=== PATIENT | female | born 1955 | race Caucasian/White ===

== ENCOUNTER 2020-05-04 07:13 | Inpatient (IN) | payer MEDICARE, OTHER ==
[2020-04-29 13:07] LABS: BASOPHILS % 0.3 % (0.0-1.0); EOSINOPHILS # (AUTO) 0.2 (0.0-0.4); EOSINOPHILS % 2.1 % (0.0-6.0); HEMATOCRIT 33.1 % (34.2-44.1); HEMOGLOBIN 10.9 g/dL (12.0-16.0); LYMPHOCYTES # (AUTO) 1.5 (1.0-3.2); LYMPHOCYTES % 15.9 % (18.0-39.1); MEAN CORPUSCULAR HEMOGLOBIN 29.6 pg (28-32); MEAN CORPUSCULAR HGB CONC 32.9 g/dL (31-35); MEAN CORPUSCULAR VOLUME 89.9 fL (81-99); MONOCYTES # (AUTO) 0.5 (0.2-0.8); MONOCYTES % 5.8 % (4.4-11.3); NEUTROPHILS % 75.7 % (38.7-80.0); PLATELET COUNT 225 x10e3/uL (140-360); RED BLOOD COUNT 3.68 x10e6/uL (3.6-5.1); RED CELL DISTRIBUTION WIDTH 12.7 % (11.7-14.4)
[2020-04-29 13:23] LABS: ANION GAP 18.3 mmol/L (8-16); CALCIUM 9.9 mg/dL (8.4-10.2); CREATININE, SERUM 1.42 mg/dL (0.57-1.11); POTASSIUM 5.3 mmol/L (3.5-5.1)
--- NOTE | 2020-04-29 13:54 | Diagnostic Imaging Report ---
EXAMINATION: CHEST 2 VIEWS INDICATION: Pre-operative COMPARISON: None FINDINGS: LINES/TUBES:None LUNGS:The lungs are well-inflated. No focal consolidation or pulmonary edema. PLEURA:No pleural effusion or pneumothorax. MEDIASTINUM:The cardiomediastinal silhouette appears normal in size and shape. BONES/SOFT TISSUES:No acute osseous injury. ABDOMEN:No free air under the diaphragm. Status post cholecystectomy. IMPRESSION: No focal pneumonia or pulmonary edema. Signed by: Graham Dickerson MD on 04/29/2020 1:50 PM
[~2020-05-04] VITALS: Ht 167.6 cm; Wt 117.0 kg
[~2020-05-04 07:13] MED LIST: GABAPENTIN300 MG PO; GEODON20 MG PO; LASIX40 MG PO; LISINOPRIL10 MG PO; VENLAFAXINE HC100 MG PO; WELLBUTRIN SR150 MG PO
[2020-05-04] MEDS ORDERED: CEFAZOLIN SOD 1 GM/NS 50ML 100 ML IV ONE (08:24)
[2020-05-04] MEDS ORDERED: LIDOCAINE HCL (LTA) 4 ML SOLN ONE (08:43)
[2020-05-04] MEDS ORDERED: BUPIVACAINE 0.25% 30ML SDV INJ ONE (09:08)
[2020-05-04] MEDS ORDERED: ONDANSETRON HCL INJ 2MG/ML 2ML 2 MG/ML VIAL IV PRN (09:15)
[2020-05-04] MEDS ORDERED: SCOPOLAMINE 1.5 MG PATCH TOP SCH (09:15)
[2020-05-04] MEDS ORDERED: PROMETHAZINE HCL (IM) 25 MG/ML VIAL IM ONE (10:51)
[2020-05-04] MEDS ORDERED: METOCLOPRAMIDE HCL 10 MG/2ML VIAL ONE (10:52)
--- OUTSIDE RECORDS SUMMARY | 2020-05-04 11:52 | XMS REPORT | Clinical Summary ---
Author Author [facility] Organization [facility] Address Unknown Phone Unavailable Care Team Providers Care Fitness Services Manager Name Role Phone Nela MartinezAkshat MCCLAIN PCP Allergies No Known Allergies Medications End Date Status Medication Sig Dispensed Refills Start Date Active ziprasidone (GEODON) 60 0 MG capsule 6 Active diazepam (VALIUM) 10 MG Take 10 mg by 0 tablet mouth every 6 (six) hours as needed for anxiety. Active buPROPion XL (WELLBUTRIN TK 1 T PO QD 1 03/13 XL) 300 MG 24 hr tablet WF 7 Active gabapentin (NEURONTIN) TK 2 TO 3 CS 2 01 300 mg capsule PO QHS WF 7 Active venlafaxine XR 0 (EFFEXOR-XR) 150 MG 24 hr 9 capsule 07/29/2020 Active furosemide (LASIX) 40 mg Take 1 tablet 90 tablet 3 tablet (40 mg total) 9 by mouth daily. Active omeprazole (PriLOSEC) 40 TAKE 1 90 capsule 1 0 MG capsule CAPSULE BY 0 MOUTH EVERY DAY Active lisinopriL (PRINIVIL) 30 TAKE 1 TABLET 90 tablet 0 mg tablet BY MOUTH 0 EVERY DAY Active promethazine (PHENERGAN) TAKE 1 TABLET 30 tablet 0 25 MG tablet BY MOUTH 0 EVERY 6 HOURS NEEDED FOR NAUSEA OR VOMITING 04/13/2021 Active Linzess 290 mcg capsule TAKE 1 30 capsule 3 CAPSULE (290 0 MCG TOTAL) BY MOUTH DAILY BEFORE BREAKFAST. 12/20/2019 Discontinued cyclobenzaprine TK 1 T PO 0 (FLEXERIL) 10 mg tablet TID PRF 7 SPASMS 07/12/2019 Discontinued naltrexone-bupropion One tab one 60 tablet 0 03/27 (CONTRAVE) 8-90 mg tablet time a day 7 extended release for one week and then bid 07/25/2019 Discontinued (Reorder) cyclobenzaprine Take 1 tablet 30 tablet 1 07/10/20 1 (FLEXERIL) 5 mg tablet (5 mg total) 8 by mouth 3 (three) times a day as needed for muscle spasms for up to 30 days. 05/30/2019 Discontinued (Reorder) promethazine (PHENERGAN) Take 1 tablet 30 tablet 0 25 MG tablet (25 mg total) 8 by mouth every 6 (six) hours as needed for nausea or vomiting. 06/28/2019 Discontinued RABEprazole (ACIPHEX) 20 TAKE 1 TABLET 90 tablet 2 mg EC tablet DAILY 8 05/12/2019 Discontinued (Reorder) omeprazole (PriLOSEC) 40 TAKE 1 30 capsule 0 0 MG capsule CAPSULE BY 9 MOUTH EVERY DAY 06/09/2019 Discontinued (Reorder) omeprazole (PriLOSEC) 40 TAKE 1 30 capsule 0 0 MG capsule CAPSULE BY 9 MOUTH EVERY DAY 05/28/2019 Discontinued amLODIPine (NORVASC) 5 mg Take 1 tablet 30 tablet 3 tablet (5 mg total) 9 by mouth daily. 06/21/2019 mupirocin (BACTROBAN into each 30 g 0 05/22 NASAL) 2 % nasal ointment nostril 2 9 (two) times a day for 30 days. spress sides of nose together and gently massage. 06/28/2019 Discontinued lisinopril Take 1 tablet 30 tablet 2 (PRINIVIL,ZESTRIL) 10 mg (10 mg total) 9 tablet by mouth daily. 07/16/2019 Discontinued (Reorder) promethazine (PHENERGAN) TAKE 1 TABLET 30 tablet 0 25 MG tablet BY MOUTH 9 EVERY 6 HOURS NEEDED FOR NAUSEA OR VOMITING 08/15/2019 Discontinued (Reorder) omeprazole (PriLOSEC) 40 TAKE 1 30 capsule 0 1 MG capsule CAPSULE BY 9 MOUTH EVERY DAY 06/28/2019 Discontinued omeprazole (PriLOSEC) 40 TAKE 1 30 capsule 0 1 MG capsule CAPSULE BY 9 MOUTH EVERY DAY 07/02/2019 Discontinued lisinopril (PRINIVIL) 30 Take 1 tablet 30 tablet 3 mg tablet (30 mg total) 9 by mouth daily. 12/26/2019 Discontinued lisinopril (PRINIVIL) 30 Take 1 tablet 90 tablet 0 mg tablet (30 mg total) 9 by mouth daily. 07/22/2019 Discontinued (Reorder) furosemide (LASIX) 20 mg Take 1 tablet 30 tablet 11 tabletIndications: Leg (20 mg total) 9 edema by mouth daily. 09/12/2019 Discontinued promethazine (PHENERGAN) TAKE 1 TABLET 30 tablet 0 25 MG tablet BY MOUTH 9 EVERY 6 HOURS NEEDED FOR NAUSEA OR VOMITING 07/30/2019 Discontinued (Dose adjustmen t) furosemide (LASIX) 20 mg Take 1 tablet 90 tablet 3 tabletIndications: Leg (20 mg total) 9 edema by mouth daily. 12/20/2019 Discontinued cyclobenzaprine TAKE 1 TABLET 30 tablet 1 07/29/20 1 (FLEXERIL) 5 mg tablet (5 MG TOTAL) 9 BY MOUTH 3 (THREE) TIMES A DAY NEEDED FOR MUSCLE SPASMS 12/20/2019 Discontinued potassium chloride Take 1 tablet 90 tablet 3 07/30 (K-DUR) 20 MEQ CR tablet (20 mEq 9 total) by mouth every other day. 09/16/2019 Discontinued omeprazole (PriLOSEC) 40 TAKE 1 30 capsule 0 1 MG capsule CAPSULE BY 9 MOUTH EVERY DAY 12/20/2019 Discontinued lisinopril (PRINIVIL) 10 TAKE 1 TABLET 90 tablet 0 mg tablet BY MOUTH 9 EVERY DAY 10/22/2019 Discontinued promethazine (PHENERGAN) TAKE 1 TABLET 30 tablet 0 25 MG tablet BY MOUTH 0 EVERY 6 HOURS NEEDED FOR NAUSEA OR VOMITING 10/08/2019 Discontinued omeprazole (PriLOSEC) 40 TAKE 1 30 capsule 0 0 MG capsule CAPSULE BY 0 MOUTH EVERY DAY 09/16/2019 Discontinued (Reorder) amoxicillin-pot Take 1 tablet 20 tablet 0 09/16/19 2 clavulanate (AUGMENTIN) by mouth 2 0 875-125 mg per tablet (two) times a day for 10 days. 09/16/2019 Discontinued (Reorder) benzonatate (TESSALON Take 1 30 capsule 1 09/04 PERLES) 100 MG capsule capsule (100 0 mg total) by mouth 3 (three) times a day as needed for cough for up to 30 days. 09/26/2019 amoxicillin-pot Take 1 tablet 20 tablet 0 09/16/19 2 clavulanate (AUGMENTIN) by mouth 2 0 875-125 mg per tablet (two) times a day for 10 days. 10/16/2019 benzonatate (TESSALON Take 1 30 capsule 1 09/04 PERLES) 100 MG capsule capsule (100 0 mg total) by mouth 3 (three) times a day as needed for cough for up to 30 days. 11/14/2019 Discontinued omeprazole (PriLOSEC) 40 TAKE 1 30 capsule 0 0 MG capsule CAPSULE BY 0 MOUTH EVERY DAY 01/15/2020 Discontinued promethazine (PHENERGAN) TAKE 1 TABLET 30 tablet 0 25 MG tablet BY MOUTH 0 EVERY 6 HOURS NEEDED FOR NAUSEA OR VOMITING 02/19/2020 Discontinued omeprazole (PriLOSEC) 40 TAKE 1 30 capsule 3 0 MG capsule CAPSULE BY 0 MOUTH EVERY DAY 12/20/2019 Discontinued linaCLOtide (LINZESS) 72 Take 1 30 capsule 3 0 mcg capsule capsule (72 0 mcg total) by mouth daily before breakfast. 04/13/2020 Discontinued linaCLOtide (Linzess) 290 Take 1 30 capsule 3 mcg capsule capsule (290 0 mcg total) by mouth daily before breakfast. 03/24/2020 Discontinued lisinopriL (PRINIVIL) 30 TAKE 1 TABLET 90 tablet 0 mg tablet BY MOUTH 0 EVERY DAY 04/10/2020 Discontinued promethazine (PHENERGAN) TAKE 1 TABLET 30 tablet 0 25 MG tablet BY MOUTH 0 EVERY 6 HOURS NEEDED FOR NAUSEA OR VOMITING Active Problems Problem Noted Date Essential hypertension 07/12/2019 Leg edema 07/12/2019 Shortness of breath 07/12/2019 Pre-operative cardiovascular examination 07/12/2019 Abnormal vaginal bleeding 12/13/2015 Abnormal weight gain 12/13/2015 Acute pharyngitis 12/13/2015 Arthropathia 12/13/2015 Back pain 12/13/2015 Abnormal blood chemistry level 12/13/2015 Rash 12/13/2015 Cardiovascular disease 12/13/2015 Dizziness and giddiness 12/13/2015 Edema 12/13/2015 Headache 12/13/2015 Iron deficiency anemia 12/13/2015 Pain in joint 12/13/2015 Low back pain 12/13/2015 Multiple-type hyperlipidemia 12/13/2015 Morbid obesity 12/13/2015 Pulmonary embolism 12/13/2015 Right upper quadrant pain 12/13/2015 Sciatica 12/13/2015 Fever 09/12/2013 Postprocedural state 09/12/2013 Abdominal pain 06/06/2013 Hemorrhage of rectum and anus 06/06/2013 Melena 06/06/2013 Noninfectious gastroenteritis 06/21/2012 Urinary tract infection 06/12/2012 Vomiting 06/12/2012 Gastroesophageal reflux disease 06/04/2012 Nausea 06/04/2012 Disorder of kidney and ureter 06/01/2012 Encounters Care Team Description Date Type Specialty Nela Martinez E., DO 04/12/2020 Refill Family Medicine Corteguera, Nela E., DO 04/09/2020 Refill Family Medicine Corteguera, Nela E., DO 03/24/2020 Refill Family Medicine Corteguera, Nela E., DO 02/19/2020 Refill Family Medicine Corteguera, Nela E., DO 01/14/2020 Refill Family Medicine Corteguera, Nela E., DO 12/26/2019 Refill Family Medicine Corteguera, Nela E., DO Insomnia, unspecified type (Primary Dx) 12/25/2019 Telemedicine Family Medicine 12/24/2019 Travel Nela Martinez., Knee instability, left (Primary Dx); Knee instability, right; Chronic idiopathic constipation; Essential hypertension 12/20/2019 Telemedicine Family Medicine 12/20/2019 Travel Heidi Sanford MA 12/09/2019 Orders Only Family Medicine Nela Martinez E., DO Chronic idiopathic constipation (Primary Dx) 11/21/2019 Telemedicine Family Medicine 11/20/2019 Travel Heidi Sanford MA 11/20/2019 Orders Only Family Medicine Nela Martinez E., DO 11/14/2019 Refill Family Medicine 11/12/2019 Travel Nela Martinez E., DO 10/22/2019 Refill Family Medicine Sharri Trejo MD Coronary artery disease involving [place] heart with angina pectoris, unspecified vessel or lesion type (HCC) (Primary Dx) 10/08/2019 Transcribe Procedural Cardiolo gy Orders Nela Martinez E., DO 10/08/2019 Refill Family Medicine Serene Durham MA resched 09/17/2019 Telephone Cardiology Nela Martinez., DO Bronchitis 09/16/2019 Hospital Radiology Encounter Nela Martinez., Bronchitis (Primary Dx); Body mass index (BMI) 40.0-44.9, adult (HCC) 09/16/2019 Office Visit Family Medicine Nela Martinez., DO 09/15/2019 Refill Family Medicine Nela Martinez., DO 09/12/2019 Refill Family Medicine Nela Martinez., DO 08/22/2019 Refill Family Medicine Nela Martinez., DO 08/15/2019 Refill Family Medicine Joan Spencer RN 07/30/2019 Orders Only Cardiology Nela Martinez., DO 07/25/2019 Refill Family Medicine Serene Durham MA Med Refill 07/22/2019 Refill Cardiology Nela Martinez., Abnormal laboratory test result (Primary Dx) 07/19/2019 Orders Only Family Medicine Nela Martinez., DO 07/19/2019 Telephone Family Medicine Nela Martinez., DO 07/16/2019 Refill Family Medicine Serene Durham MA Appointment 07/15/2019 Telephone Cardiology Nela Martinez., Sharri Angulo MD Cardiovascular disease (Primary Dx); Hyperlipidemia, unspecified hyperlipidemia type; Essential hypertension; Shortness of breath; Leg edema; Pre-operative cardiovascular examination 07/12/2019 Office Visit Cardiology Nela Martinez., DO 07/12/2019 Orders Only Family Medicine Nela Martinez., DO 07/02/2019 Refill Family Medicine Nela Martinez., Essential hypertension (Primary Dx); Shortness of breath; Chronic fatigue 06/28/2019 Office Visit Family Medicine Susan Hugo MD 06/28/2019 Refill Family Medicine Nela Martinez, DO 06/11/2019 Telephone Family Medicine Susan Hugo MD 06/09/2019 Refill Family Medicine Nela Martinez, DO 06/04/2019 Telephone Family Medicine Nela Martinez, DO 05/30/2019 Refill Family Medicine Heidi Sanford, WHITNEY 05/28/2019 Orders Only Family Medicine Heidi Sanford, WHITNEY 05/28/2019 Orders Only Family Medicine Heidi Sanford, WHITNEY 05/27/2019 Telephone Family Medicine Nela Martinez, DO Essential hypertension (Primary Dx); Body mass index (BMI) of 40.0-44.9 in adult (HCC) 05/22/2019 Office Visit Family Medicine Heidi Sanford, WHITNEY 05/22/2019 Orders Only Family Medicine Nela Martinez, DO 05/12/2019 Refill Family Medicine after 05/04/2019 Family History Relation Name Status Comments Father Mother Social History Date Tobacco Use Types Packs/Day Years Used Quit: 1996 Former Smoker Cigarettes 10 20 Smokeless Tobacco: Never Used Drinks/Week oz/Week Comments Alcohol Use Never Alcohol Habits Answer Date Recorded How often do you have a drink containing alcohol? Never 07/12/2019 How many drinks containing alcohol do you have on No t asked a typical day when you are drinking? How often do you have six or more drinks on one Not asked occasion? Sex Assigned at Date Recorded Not on file Industry Job Start Date Occupation Not on file Not on file Not on file Travel End Travel History Travel Start No recent travel history available. Last Filed Vital Signs Reading Time Taken Comments Vital Sign 130/80 12/25/2019 7:36 AM CDT Blood Pressure 87 09/16/2019 3:36 PM [employer]ORY [employer]IST Pulse 36.9 C (98.5 F) 09/16/2019 3:36 PM [employer]ATORY [employer] SPECIALIST Temperature - - Respiratory Rate 91% 09/16/2019 3:36 PM [employer]ATORY [employer] SPECIALIST Oxygen Saturation - - Inhaled Oxygen Concentration 122 kg (270 lb) 09/16/2019 3:36 PM REGULATORY LAW SPECIALIST Weight 167.6 cm (5' 6") 12/25/2019 7:36 AM CDT Height 43.58 09/16/2019 3:36 PM [employer]ULATORY LAW SPECIALIST Body Mass Index Plan of Treatment Health Maintenance Due Date Last Done Comments CERVICAL CANCER SCREENING 1976 COLONOSCOPY SCREENING 2005 SHINGLES VACCINES (#1) 2005 BREAST CANCER SCREENING 11/09/2013 11/10/2011, 04/28/2010 INFLUENZA VACCINE 06/04/2020 Procedures Comments Procedure Name Priority Date/Time Associated Diag nosis XR CHEST 2 VW Routine 09/16/2019 Bronchitis 4:39 PM [employer]ATORY [employer]IST POCT INFLUENZA A/B Routine 09/16/2019 Bronchitis 4:04 PM [employer]ATORY LAW SPECIALIST LITHOLINK CKD PROGRAM Routine 07/12/2019 (ROB HIST) 12:00 AM REGULATORY LAW SPECIALIST THYROID STIMULATING Routine 07/12/2019 HORMONE 12:00 AM REGULATORY LAW SPECIALIST LIPID PANEL Routine 07/12/2019 12:00 AM REGULATORY LAW SPECIALIST COMPREHENSIVE METABOLIC Routine 07/12/2019 PANEL 12:00 AM REGULATORY LAW SPECIALIST CBC WITH PLATELET AND Routine 07/12/2019 DIFFERENTIAL 12:00 AM REG[employer]ATORY LAW SPECIALIST ECG 12-LEAD Routine 06/28/2019 Essential hyper tension 11:00 AM CDT Shortness of breath Chronic fatigue ECG 12-LEAD Routine 05/22/2019 Essential hyper tension 10:50 AM CDT after 05/04/2019 Results * XR Chest 2 Vw (09/16/2019 4:39 PM REGULATORY LAW SPECIALIST) Specimen Narrative Performed At EXAMINATION: XR CHEST 2 VW [facility] CLINICAL HISTORY: 64 years Female J40 Bronchitis not specified as acute or chronic, Cough new onset COMPARISON: June 15 IMPRESSION: The cardiomediastinal silhouette is not enlarged The lungs are clear Age related changes in the osseous stru ctures. . [id number] Procedure Note Hm Interface, Radiology Results Incoming - 09/16/2019 4:44 PM REGULATORY LAW SPECIALIST EXAMINATION: XR CHEST 2 VW CLINICAL HISTORY: 64 years Female J40 Bronchitis not specified as acute or chronic, Cough new onset COMPARISON: June 15 IMPRESSION: The cardiomediastinal silhouette is not enlarged The lungs are clear Age related changes in the osseous structures. . [id number] Performing Organization Address City/State/Zipcode Ph one Number [facility] [address] [place] [address] * POC Influenza A/B (09/16/2019 4:04 PM REGULATORY LAW SPECIALIST) Pathologist [facility] Rapid Influenza negative A Ag Rapid Influenza negative B Ag Specimen Nasopharyngeal * [facility] CKD Program (07/12/2019 12:00 AM REGULATORY LAW SPECIALIST) Pathologist [facility] Interpretation NoteComment: Supplemental [facility] 02 report is available. Specimen Narrative Performed At Performed at: [facility] [employer] [facility] [address] [place], [place], [place] [id number] [employer] Trimmer: Lukasz Snyder MD, Phone: [phone] Performing Organization Address City/[facility] Ph one Number [facility] * CBC with platelet and differential (07/12/2019 12:00 AM REGULATORY LAW SPECIALIST) Pathologist [facility] WBC 10.5 3.4 - 10.8 x10E3/uL [facility] RBC 3.87 3.77 - 5.28 x10E6/uL [facility] HGB 12.3 11.1 - 15.9 g/dL [facility] HCT 36.3 34.0 - 46.6 % [facility] MCV 94 79 - 97 fL [facility] MCH 31.8 26.6 - 33.0 pg [facility] MCHC 33.9 31.5 - 35.7 g/dL [facility] RDW 14.6 12.3 - 15.4 % [facility] Platelet count 420 150 - 450 x10E3/uL [facility] Neutrophils 67 Not Estab. % [facility] Lymphocytes 25 Not Estab. % [facility] Monocytes 6 Not Estab. % [facility] Eosinophils 1 Not Estab. % [facility] Basophils 0 Not Estab. % [facility] Neutrophils, 7.1 (H) 1.4 - 7.0 x10E3/uL [facility] absolute Lymphocytes, 2.6 0.7 - 3.1 x10E3/uL [facility] absolute Monocytes, 0.7 0.1 - 0.9 x10E3/uL [facility] absolute Eosinophils, 0.1 0.0 - 0.4 x10E3/uL [facility] absolute Basophils, 0.0 0.0 - 0.2 x10E3/uL [facility] absolute Immature 1 Not Estab. % [facility] granulocytes Immature grans 0.1 0.0 - 0.1 x10E3/uL [facility] (abs) Specimen Narrative Performed At Performed at: [address] [place] [id number] [employer] Tr[employer]: Sergio Brannon MD, Phone: [phone] Specimen Comment: A duplicate report zelaya s been generated due to demographic updates. Performing Organization Address [facility] * Thyroid stimulating hormone (07/12/2019 12:00 AM REGULATORY LAW SPECIALIST) TSH 0.607 0.450 - 4.500 uIU/mL [facility] Specimen Narrative Performed At Performed at: [address] [place] [id number] [employer] Tr[employer]: Sergio Brannon MD, Phone: [phone] Performing Organization Address [facility] * Lipid panel (07/12/2019 12:00 AM REGULATORY LAW SPECIALIST) Cholesterol 245 (H) 100 - 199 mg/dL [facility] Triglycerides 119 0 - 149 mg/dL [facility] HDL cholesterol 72 >39 mg/dL [facility] VLDL 24 5 - 40 mg/dL [facility] cholesterol shayan LDL cholesterol 149 (H) 0 - 99 mg/dL [facility] calculated Non-HDL 173 (H) 0 - 129 mg/dL [facility] cholesterol Specimen Narrative Performed At Performed at: [address] [place] [id number] [employer] Trimmer: Sergio Brannon MD, Phone: [phone] Performing Organization Address [facility] one [facility] * Comprehensive metabolic panel (07/12/2019 12:00 AM REGULATORY LAW SPECIALIST) Glucose 106 (H) 65 - 99 mg/dL [facility] BUN 18 8 - 27 mg/dL [facility] Creatinine 1.27 (H) 0.57 - 1.00 mg/dL [facility] EGFR Non-Afr. 45 (L) >59 mL/min/1.73 [facility] Israeli EGFR 52 (L) >59 mL/min/1.73 [facility] Israeli BUN/creatinine 14 12 - 28 [facility] ratio Sodium 130 (L) 134 - 144 mmol/L [facility] Potassium 5.4 (H) 3.5 - 5.2 mmol/L [facility] Chloride 91 (L) 96 - 106 mmol/L [facility] CO2 22 20 - 29 mmol/L [facility] Calcium 9.8 8.7 - 10.3 mg/dL [facility] Protein 6.6 6.0 - 8.5 g/dL [facility] Albumin, S 4.2 3.6 - 4.8 g/dL [facility] Globulin, total 2.4 1.5 - 4.5 g/dL [facility] Albumin/globuli 1.8 1.2 - 2.2 [facility] n ratio Total bilirubin 0.3 0.0 - 1.2 mg/dL [facility] Alkaline 109 39 - 117 IU/L [facility] phosphatase AST 24 0 - 40 IU/L [facility] ALT 17 0 - 32 IU/L [facility] Specimen Narrative Performed At Performed at: [address] [place], [place] [address] [place] [address] [id number] [employer] Trimmer: Sergio Brannon MD, Phone: [phone] Performing Organization Address [facility] one Number [facility] * ECG 12 lead (06/28/2019 11:00 AM CDT) Only the most recent of 2 results within the time period is included. Ventricular 90 [facility] rate Atrial rate 90 [facility] MS interval 140 [facility] QRSD interval 78 [facility] QT interval 338 [facility] QTC interval 413 [facility] P axis 1 40 [facility] QRS axis 1 62 [facility] T wave axis 64 [facility] EKG impression Normal sinus rhythm-Normal [facility] MUSE ECG-In automated comparison with ECG of 22-MAY-2019 10:50,-No significant change was found- Specimen Narrative Performed At This result has an attachment that is n ot available. Performing Organization Address [facility] Ph one Number [facility] MUSE [address] [place] [address] after 05/04/2019 Insurance Type Payer Benefit Subscriber ID Effective Phone Address Plan / Dates Group PPO HUMANA MEDICARE HUMANA xxxxxxxxx [id number] MEDICARE resent PPO/PFFS/E RS [facility]
--- OUTSIDE RECORDS SUMMARY | 2020-05-04 11:52 | XMS REPORT | Continuity of Care Document ---
Author Author [facility] t Organization [facility] Address [address] [place] [address] Phone Unavailable Care Team Providers Care Weaving Professor Name Role Phone Celeste Martinez DO PCP DR DYLON LOPEZ Attjoses Unavailable Anitha SIDDIQUI Attphys Unavailable Celeste Martinez DO Attphys Heidi Sanford MA Attphys Unavailable Maya HOOVER, Sharri Attphys Serene Durham MA Attphys Unavailable LILY LIVE M.D. Attphys Unavailable Tj DEL CASTILLO, Iliana Franco Attphys Unavailable Oanh HOOVER, BAkshat Davis Attphys CLIFFORD RAYMUNDO M.D. Attphys Unavail ELOY Frost M.D. Attphys Unavailable SHERITA CUMMINGS M.D. Attphys Unavailable DR DYLON LOPEZ Unavailable Payers Payer Name Policy Type Policy Number Effective Date Expiration Date S hawa [employer] MEDICARE PPO/PFFS/ERS [id number] xxxxxxxxx 2018 00:00:00 [facility] Problems Condition Name Condition Details Condition Category Status Onset Date Resolution Date Last Treatment Date Treating Clinician Comments Source Essential hypertension Essential hypertension Disease Active 2019-07-12 00:00:[address] Leg edema Leg edema Disease Active 2019-07-12 00:00:00 Bhargav Lundberg Shortness of breath Shortness of breath Disease Active 2019-07-12 00:00 :00 Bhargav Lundberg Pre-operative cardiovascular examination Pre-operative cardiovascular examination Disease Active 2019-07-12 00:00:00 Bhargav Lundberg Abnormal vaginal bleeding Abnormal vaginal bleeding Disease Ac tive 2015-12-13 00:00:[address] Abnormal weight gain Abnormal weight gain Disease Active 00:00:00 Bhargav Lundberg Acute pharyngitis Acute pharyngitis Disease Active 2015-12-13 00:00:00 Bhargav Lundberg Arthropathia Arthropathia Disease Active 2015-12-13 00:00:00 Bhargav Lundberg Back pain Back pain Disease Active 2015-12-13 00:00:00 Bhargav Lundberg Abnormal blood chemistry level Abnormal blood chemistry level Disea se Active 2015-12-13 00:00:00 Bhargav Lundberg Rash Rash Disease Active 2015-12-13 00:00:00 Bhargav Lundberg Cardiovascular disease Cardiovascular disease Disease Active 2015-12-13 00:00:[address] Dizziness and giddiness Dizziness and giddiness Disease Active 2015-12-13 00:00:[address] Edema Edema Disease Active 2015-12-13 00:00:00 Bhargav Lundberg Headache Headache Disease Active 2015-12-13 00:00:00 Bhargav Lundberg Iron deficiency anemia Iron deficiency anemia Disease Active 2015-12-13 00:00:[address] Pain in joint Pain in joint Disease Active 2015-12-13 00:00:00 Bhargav Lundberg Low back pain Low back pain Disease Active 2015-12-13 00:00:00 Bhargav Lundberg Multiple-type hyperlipidemia Multiple-type hyperlipidemia Disease Active 2015-12-13 00:00:00 Bhargav Lundberg Morbid obesity Morbid obesity Disease Active 2015-12-13 00:00:00 Bhargav Lundberg Pulmonary embolism Pulmonary embolism Disease Active 2015-12-13 00:00:0 0 Bhargav Lundberg Right upper quadrant pain Right upper quadrant pain Disease Ac tive 2015-12-13 00:00:[address] Sciatica Sciatica Disease Active 2015-12-13 00:00:00 Bhargav Lundberg Fever Fever Disease Active 2013-09-12 00:00:00 Bhargav Lundberg Postprocedural state Postprocedural state Disease Active 00:00:00 Bhargav Lundberg Abdominal pain Abdominal pain Disease Active 2013-06-06 00:00:00 Bhargav Lundberg Hemorrhage of rectum and anus Hemorrhage of rectum and anus Disease Active 2013-06-06 00:00:00 Bhargav Lundberg Melena Melena Disease Active 2013-06-06 00:00:00 Bhargav Lundberg Noninfectious gastroenteritis Noninfectious gastroenteritis Disease Active 2012-06-21 00:00:00 Bhargav Lundberg Urinary tract infection Urinary tract infection Disease Active 2012-06-12 00:00:[address] Vomiting Vomiting Disease Active 2012-06-12 00:00:00 Bhargav Lundberg Gastroesophageal reflux disease Gastroesophageal reflux disease Dis ease Active 2012-06-04 00:00:00 Bhargav Lundberg Nausea Nausea Disease Active 2012-06-04 00:00:00 Bhargav Lundberg 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 Disease Active 2012-06-01 00:00:00 Bhargav Lundberg Knee pain, right Knee pain, right Problem Active [facility] Right foot pain Right foot pain Problem Active [facility] Pain due to total right knee replacement, initial enco unter Pain due to total right knee replacement, initial encounter Problem Active [facility] Depression Depression Problem Active [facility] Status post total knee replacement using cement, 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, bilateral Problem Active [facility] 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 Problem Active [facility] Other orthopedic aftercare Other orthopedic aftercare Problem Active [facility] Rupture of right quadriceps tendon, initial encounter Rupture of right quadriceps tendon, initial encounter Problem Active [facility] History of pulmonary embolism History of pulmonary embolism Problem Resolved [facility] History of revision of total replacement of right knee joint History of revision of total replacement of right knee joint Problem Active [facility] Right hip pain Right hip pain Problem Active [facility] History of arthritis History of arthritis Problem Resolved [facility] History of back pain History of back pain Problem Resolved [facility] History of biliary colic History of biliary colic Problem Resolved [facility] History of depression History of depression Problem Resolved [facility] Trochanteric bursitis of right hip Trochanteric bursitis of righ t hip Problem Active [facility] Spinal stenosis Spinal stenosis Problem Active [facility] History of sleep apnea History of sleep apnea Problem Resolved [facility] Degenerative disc disease, lumbar Degenerative disc disease, lum bar Problem Active [facility] Allergies, Adverse Reactions, Alerts Allergy Name Allergy Type Status Severity Reaction(s) Onset Date Inacti ve Date Treating Clinician Comments Source hydrocortisone DA Active OR 2018-06-15 00:00:00 [facility] cortisone DA Active [place] 2018-06-15 00:00:00 [facility] hydrocortisone DA Active OR 2015-08-05 00:00:00 [facility] cortisone DA Active MO 2015-08-05 00:00:00 [facility] Family History Family Member Diagnosis Comments Start Date Stop Date Source Mother Family history of arthritis [facility] Sibling Family history of Heart problem [facility] Social History Social Habit Start Date Stop Date Quantity Comments Source History of tobacco use Current smoker [place] [facility] History SDOH Alcohol Std Drinks [place] [facility] History SDOH Alcohol Binge [place] [facility] Sex Assigned At [facility] Cigarettes smoked current (pack per day) - Reported 00:00:00 2019-12-25 00:00:00 [place] Cigarette pack-years 2019-12-25 00:00:00 2019-12-25 00:00:00 [facility] Alcohol intake 2019-12-25 00:00:00 2019-12-25 00:00:00 Lifetime non-drinker (finding) [place] [facility] History SDOH Alcohol Frequency 2019-07-12 00:00:00 2019-07-12 00:00:0 0 1 [place] Smoking Status Start Date Stop Date Source Former smoker 2019-12-25 00:00:00 2019-12-25 00:00:00 [facility] Medications Ordered Medication Name Filled Medication Name Start Date Stop Da te Current Medication? Ordering Clinician Indication Dosage Frequency Signature (SIG) Comments Components Source Linzess 290 mcg capsule 2020-04-13 00:00:00 2021-04-13 23:59:00 Yes 290ug QD TAKE 1 CAPSULE (290 MCG TOTAL) BY MOUTH DAILY BEFORE BREAKFAST. Bhargav Lundberg promethazine (PHENERGAN) 25 MG tablet 2020-04-10 00:00:00 Y es TAKE 1 TABLET BY MOUTH EVERY 6 HOURS NEEDED FOR NAUSEA OR VOMITING Bhargav Lundberg lisinopriL (PRINIVIL) 30 mg tablet 2020-03-24 00:00:00 Yes TAKE 1 TABLET BY MOUTH EVERY DAY Bhargav corbin omeprazole (PriLOSEC) 40 MG capsule 2020-02-19 00:00:00 Yes TAKE 1 CAPSULE BY MOUTH EVERY DAY Bhargav deleon promethazine (PHENERGAN) 25 MG tablet 2020-01-15 00:00 :00 2020-04-10 00:00:00 No TAKE 1 TABLET B Y MOUTH EVERY 6 HOURS NEEDED FOR NAUSEA OR VOMITING Bhargav Lnudberg lisinopriL (PRINIVIL) 30 mg tablet 2019-12-26 00:00:00 00:00:00 No TAKE 1 TABLET BY MOUTH EVERY DAY Bhargav Lundberg linaCLOtide (Linzess) 290 mcg capsule 2019-12-09 00:00 :00 2020-04-13 00:00:00 No 290ug QD Take 1 capsule (290 mcg t otal) by mouth daily before breakfast. Bhargav Lundberg linaCLOtide (LINZESS) 72 mcg capsule 2019-11-21 00:00: 00 2019-12-20 00:00:00 No 72ug QD Take 1 capsule (72 mcg total) by mouth daily before breakfast. Bhargav Lundberg omeprazole (PriLOSEC) 40 MG capsule 2019-11-14 00:00:0 0 2020-02-19 00:00:00 No TAKE 1 CAPSULE BY MOUTH EVERY DAY Bhargav Lundberg promethazine (PHENERGAN) 25 MG tablet 2019-10-22 00:00 :00 2020-01-15 00:00:00 No TAKE 1 TABLET B Y MOUTH EVERY 6 HOURS NEEDED FOR NAUSEA OR VOMITING Bhargav Lundberg omeprazole (PriLOSEC) 40 MG capsule 2019-10-08 00:00:0 0 2019-11-14 00:00:00 No TAKE 1 CAPSULE BY MOUTH EVERY DAY Bhargav Lundberg diazepam (VALIUM) 10 MG tablet 2019-09-16 15:36:44 Yes 10mg Q6H Take 10 mg by mouth every 6 (six) hours as needed for anxiety. Bhargav Lundberg benzonatate (TESSALON PERLES) 100 MG capsule 00:00:00 2019-10-16 23:59:00 No 100mg Q.[id number] ke 1 capsule (100 mg total) by mouth 3 (three) times a day as needed for cough for up to 30 days. Bhargav Lundberg omeprazole (PriLOSEC) 40 MG capsule 2019-09-16 00:00:0 0 2019-10-08 00:00:00 No TAKE 1 CAPSULE BY MOUTH EVERY DAY Bhargav Lundberg amoxicillin-pot clavulanate (AUGMENTIN) 875-125 mg per table t 2019-09-16 00:00:00 2019-09-26 23:59:00 No 1{tbl} Q.5D Take 1 tablet by mouth 2 (two) times a day for [address] amoxicillin-pot clavulanate (AUGMENTIN) 875-125 mg per table t 2019-09-16 00:00:00 2019-09-16 00:00:00 No 1{tbl} Q.5D Take 1 tablet by mouth 2 (two) times a day for [address] benzonatate (TESSALON PERLES) 100 MG capsule 00:00:00 2019-09-16 00:00:00 No 100mg Q.[id number] Ta ke 1 capsule (100 mg total) by mouth 3 (three) times a day as needed for cough for up to 30 days. Bhargav Lundberg promethazine (PHENERGAN) 25 MG tablet 2019-09-12 00:00 :00 2019-10-22 00:00:00 No TAKE 1 TABLET B Y MOUTH EVERY 6 HOURS NEEDED FOR NAUSEA OR VOMITING Bhargav Lundberg lisinopril (PRINIVIL) 10 mg tablet 2019-08-22 00:00:00 00:00:00 No TAKE 1 TABLET BY MOUTH EVERY DAY Bhargav Lundberg omeprazole (PriLOSEC) 40 MG capsule 2019-08-15 00:00:0 0 2019-09-16 00:00:00 No TAKE 1 CAPSULE BY MOUTH EVERY DAY Bhargav Lundberg furosemide (LASIX) 40 mg tablet 2019-07-30 00:00:00 23:59:00 No 40mg QD Take 1 tablet (40 mg total) by mouth daily. Bhargav Lundberg potassium chloride (K-DUR) 20 MEQ CR tablet 2018 00:00:2019-12-20 00:00:00 No 20meq Q2D Take 1 tablet (20 mEq total) by mouth every other day. Bhargav Lundberg cyclobenzaprine (FLEXERIL) 5 mg tablet 2019-07-06 5 00:00:00 2019-12-20 00:00:00 No TAKE 1 TABLET (5 MG TOTAL) BY MOUTH 3 (THREE) TIMES A DAY NEEDED FOR MUSCLE SPASMS Bhargav Lundberg furosemide (LASIX) 20 mg tablet 2019-07-22 00:00:00 00:00:00 No Leg edema 20mg QD Take 1 tablet (20 mg total) by mouth daily. Bhargav Lundberg promethazine (PHENERGAN) 25 MG tablet 2019-07-16 00:00 :00 2019-09-12 00:00:00 No TAKE 1 TABLET B Y MOUTH EVERY 6 HOURS NEEDED FOR NAUSEA OR VOMITING Bhargav Lundberg furosemide (LASIX) 20 mg tablet 2019-07-12 00:00:00 00:00:00 No Leg edema 20mg QD Take 1 tablet (20 mg total) by mouth daily. Bharagv Lundberg lisinopril (PRINIVIL) 30 mg tablet 2019-07-02 00:00:00 202 00:00:00 No 30mg QD Take 1 tablet (30 mg total) by mouth gaby Lundberg lisinopril (PRINIVIL) 30 mg tablet 2019-06-28 00:00:00 201 05-14-29 00:00:00 No 30mg QD Take 1 tablet (30 mg total) by mouth gaby Lundberg omeprazole (PriLOSEC) 40 MG capsule 2019-06-28 00:00:0 0 2019-06-28 00:00:00 No TAKE 1 CAPSULE BY MOUTH EVERY DAY Bhargav Lundberg omeprazole (PriLOSEC) 40 MG capsule 2019-06-10 00:00:0 0 2019-08-15 00:00:00 No TAKE 1 CAPSULE BY MOUTH EVERY DAY Bhargav Lundberg promethazine (PHENERGAN) 25 MG tablet 2019-05-30 00:00 :00 2019-07-16 00:00:00 No TAKE 1 TABLET B Y MOUTH EVERY 6 HOURS NEEDED FOR NAUSEA OR VOMITING Bhargav Lundberg lisinopril (PRINIVIL,ZESTRIL) 10 mg tablet 05-28 00:00:00 2019-06-28 00:00:00 No 10mg QD Take 1 tablet (10 mg total) by mouth daily. Bhargav Lundberg mupirocin (BACTROBAN NASAL) 2 % nasal ointment 2 00:00:00 2019-06-21 23:59:00 No Q.5D into each nost ril 2 (two) times a day for 30 days. spress sides of nose together and gently massage. Bhargav Lundberg amLODIPine (NORVASC) 5 mg tablet 2019-05-22 00:00:00 2019-05 00:00:00 No 5mg QD Take 1 tablet (5 mg total) by mouth daily. Bhargav Lundberg omeprazole (PriLOSEC) 40 MG capsule 2019-05-13 00:00:0 0 2019-06-09 00:00:00 No TAKE 1 CAPSULE BY MOUTH EVERY DAY Bhargav Lundberg venlafaxine XR (EFFEXOR-XR) 150 MG 24 hr capsule 2019-04-15 00:00:00 Yes Bhargav corbin omeprazole (PriLOSEC) 40 MG capsule 2019-04-09 00:00:0 0 2019-05-12 00:00:00 No TAKE 1 CAPSULE BY MOUTH EVERY DAY Bhargav Lundberg MethylPREDNISolone Acetate 40 MG/ML Injection Suspensi on MethylPREDNISolone Acetate 40 MG/ML Injection Suspension 2019-01-09 00:00:00 No CLIFFORD DELEON M.D. USE DIRECTED. [facility] RABEprazole (ACIPHEX) 20 mg EC tablet 2018-08-31 00:00 :00 2019-06-28 00:00:00 No TAKE 1 TABLET DAILY Hous rhiannon Lundberg promethazine (PHENERGAN) 25 MG tablet 2018 00:00 :00 2019-05-30 00:00:00 No 25mg Q6H Take 1 tablet ( 25 mg total) by mouth every 6 (six) hours as needed for nausea or vomiting. Bhargav Welsh ethjessica cyclobenzaprine (FLEXERIL) 5 mg tablet 6 00:00:00 2019-07-25 00:00:00 No 5mg Q.[id number] Ta ke 1 tablet (5 mg total) by mouth 3 (three) times a day as needed for muscle spasms for up to 30 days. [facility] naltrexone-bupropion (CONTRAVE) 8-90 mg tablet extended rele ase 2017-03-27 00:00:00 2019-07-12 00:00:00 No One tab one time a day for one week and then bid [facility] gabapentin (NEURONTIN) 300 mg capsule 2017-03-20 00:00:00 Y es TK 2 TO 3 CS PO QHS WF [facility] buPROPion XL (WELLBUTRIN XL) 300 MG 24 hr tablet 2017-03-13 00:00:00 Yes TK 1 T PO QD WF Bhargav Welsh ethodist cyclobenzaprine (FLEXERIL) 10 mg tablet 00:00:00 2019-12-20 00:00:00 No TK 1 T PO TID PRF SPASMS [facility] ziprasidone (GEODON) 60 MG capsule 2015-12-15 00:00:00 Yes [facility] Gabapentin TABS Gabapentin TABS Yes [facility] Ziprasidone HCl - 20 MG Oral Capsule Ziprasidone HCl - 20 MG Oral C apsule Yes [facility] Aciphex TBEC Aciphex TBEC Yes [facility] busPIRone HCl - 10 MG Oral Tablet busPIRone HCl - 10 MG Oral Tablet Yes [facility] Wellbutrin 100 MG TABS Wellbutrin 100 MG TABS Yes [facility] Effexor TABS Effexor TABS Yes [facility] diazePAM TABS diazePAM TABS Yes [facility] Effexor XR 37.5 MG Oral Capsule Extended Release 24 Ho ur Effexor XR 37.5 MG Oral Capsule Extended Release 24 Hour Yes [facility] Wellbutrin SR 150 MG Oral Tablet Extended Release 12 H our Wellbutrin SR 150 MG Oral Tablet Extended Release 12 Hour Yes [facility] Gabapentin 300 MG TABS Gabapentin 300 MG TABS Yes [facility] diazePAM 10 MG Oral Tablet diazePAM 10 MG Oral Tablet Yes [facility] Lasix TABS Lasix TABS Yes [facility] Lisinopril TABS Lisinopril TABS Yes [facility] Omeprazole TBDD Omeprazole TBDD Yes [facility] Geodon 40 MG Oral Capsule Geodon 40 MG Oral Capsule Yes [facility] Vital Signs Vital Name Observation Time Observation Value Comments Source Systolic blood pressure 2019-12-25 07:36:00 130 mm[Hg] Bhargav Lundberg Diastolic blood pressure 2019-12-25 07:36:00 80 mm[Hg] Bhargav Lundberg Body height 2019-12-25 07:36:00 167.6 cm Bhargav Lundberg Heart rate 2019-09-16 15:36:00 87 /min Bhargav Lnudberg Body temperature 2019-09-16 15:36:00 36.94 Ila [place] [facility] Body weight 2019-09-16 15:36:00 122.471 kg Bhargav Lundberg BMI 2019-09-16 15:36:00 43.58 kg/m2 Bhargav Lundberg Oxygen saturation in Arterial blood by Pulse oximetry 09-16 15:36:00 91 /min Bhargav Lundberg Height 2019-08-07 10:46:00 66 [in_us] [facility] Weight 2019-08-07 10:46:00 272 [lb_av] [facility] Body Mass Index Calculated 2019-08-07 10:46:00 43.9 kg/m2 [facility] Height 2019-01-09 12:30:00 66 [in_us] [facility] Weight 2019-01-09 12:30:00 250 [lb_av] [facility] Body Mass Index Calculated 2019-01-09 12:30:00 40.35 kg/m2 [facility] BP Systolic 2018-01-30 11:18:00 131 mm[Hg] [facility] BP Diastolic 2018-01-30 11:18:00 69 mm[Hg] [facility] Height 2018-01-30 11:18:00 65 [in_us] [facility] Weight 2018-01-30 11:18:00 250 [lb_av] [facility] Body Mass Index Calculated 2018-01-30 11:18:00 41.6 kg/m2 [facility] Heart Rate 2018-01-30 11:18:00 81 /min [facility] Procedures Procedure Date / Time Performed Performing Clinician Sourc e XR CHEST 2 VW 2019-09-16 16:39:34 Nela Martinez ethodist POCT INFLUENZA A/B 2019-09-16 16:04:00 Nela Martinez [facility] CBC WITH PLATELET AND DIFFERENTIAL 2019-07-12 00:00:00 Nela Gan COMPREHENSIVE METABOLIC PANEL 2019-07-12 00:00:00 Ninoska Martinez LIPID PANEL 2019-07-12 00:00:00 Nela Martinez ethodist THYROID STIMULATING HORMONE 2019-07-12 00:00:00 Nela Martinez LITHOLINK CKD PROGRAM (ROB HIST) 2019-07-12 00:00:00 Nela Allen ra ECG 12-LEAD 2019-06-28 11:00:36 Nela Martinez ethodist ECG 12-LEAD 2019-05-22 10:50:53 Nela Martinez ethodist MRI Spine lumbar wo contrast [id number] 2019-01-23 00:00:00 [facility] [U] XRAY KNEE 3 VWS RIGHT [id number] 2018-01-12 00:00:00 [facility] [U] XRAY FOOT 2 VWS RIGHT [id number] 2018-01-12 00:00:00 [facility] [[facility]] CBC (INCLUDES DIFF/PLT) 2018-01-12 00:00:00 [facility] [[facility]] SED RATE BY MODIFIED KOKOREN 2018-01-12 00:00:00 [facility] [[facility]] C-REACTIVE PROTEIN 2018-01-12 00:00[facility]00 [facility] D-DIMER, QUANTITATIVE 2018-01-12 00:00:00 [facility] MR Knee wo contrast [id number] 2018-01-12 00:00[facility] History of Hand surgery [facility] History of Lumbar vertebral fusion [facility] Plan of Care Planned Activity Planned Date Details Comments Source Future Scheduled Test 2020-06-04 00:00:00 INFLUENZA VACCINE [code = INFLUENZA VACCINE] [facility] Future Scheduled Test 2013-11-09 00:00:00 BREAST CANCER SCRE ENING [code = BREAST CANCER SCREENING] [facility] Future Scheduled Test 2005 00:00:00 COLONOSCOPY SCREEN ING [code = COLONOSCOPY SCREENING] [place] [facility] Future Scheduled Test 2005 00:00:00 SHINGLES VACCINES (#1) [code = SHINGLES VACCINES (#1)] [place] [facility] Future Scheduled Test 1976 00:00:00 Screening for kaleigh gnant neoplasm of cervix (procedure) [code = 140835393] [place] [facility] Encounters Start Date/Time End Date/Time Encounter Type Ad[facility] Encounter ID Source 2017-04-28 11:00:00 Inpatient DYLON CASTILLO [facility] [place] [place] AUNDREA [facility] [id number] [facility] 2019-12-25 00:00:00 2019-12-25 00:00:00 Outpatient AMELIA, Adrianne NA [facility] [id number] [facility] 2019-12-20 00:00:00 2019-12-20 00:00:00 Outpatient CORTASIAUERA, A NA [facility] [id number] [place] [facility] 2019-11-21 00:00:00 2019-11-21 00:00:00 Outpatient CORTASIAUERA, A NA [facility] [id number] [place] [facility] 2019-09-16 00:00:00 2019-09-16 00:00:00 Outpatient CORTASIAUERAdrianne, A NA [facility] [id number] [facility] 2019-08-07 10:00:00 2019-08-07 10:00:00 Appointment; LILY LIVE M.D. WASSERMAN, MATTHEW, M.D. [facility] Orthopedics [facility] [id number] [facility] 2019-06-05 23:42:00 2019-06-05 23:42:00 Emergency E [facility] [id number] [facility] 2019-01-23 12:45:00 2019-01-23 12:45:00 Appointment; CLIFFORD LESTER M.D. RODRIGUEZ-QUINTANA, DAVID, M.D. [facility] [id number] [facility] 2019-01-09 11:30:00 2019-01-09 11:30:00 Appointment; CLIFFORD LESTER M.D. RODRIGUEZ-QUINTANA, DAVID, M.D. [facility] [id number] [facility] 2018-07-13 10:15:00 2018-07-13 10:15:00 Appointment; CLIFFORD LESTER M.D. RODRIGUEZ-QUINTANA, DAVID, M.D. [facility] [id number] [facility] 2018-07-04 11:45:00 2018-07-04 11:45:00 Appointment; CLIFFORD LESTER M.D. RODRIGUEZ-QUINTANA, DAVID, M.D. [facility] [id number] [facility] 2018-06-29 09:45:00 2018-06-29 09:45:00 Appointment; CLIFFORD LESTER M.D. RODRIGUEZ-QUINTANA, DAVID, M.D. [facility] [id number] [facility] 2018-05-09 15:15:00 2018-05-09 15:15:00 Appointment; CLIFFORD LESTER M.D. RODRIGUEZ-QUINTANA, DAVID, M.D. [facility] [id number] [facility] 2018-05-04 10:00:00 2018-05-04 10:00:00 Appointment; CLIFFORD LESTER M.D. RODRIGUEZ-QUINTANA, DAVID, M.D. [facility] [id number] [facility] 2018-02-06 14:30:00 2018-02-06 14:30:00 Appointment; CLIFFORD LESTER M.D. RODRIGUEZ-QUINTANA, DAVID, M.D. [facility] Orthopedics [id number] [facility] 2018-01-26 13:30:00 2018-01-26 13:30:00 Appointment; ELOY MORALES M .D. BLUM, HENRY, M.D. [facility] Ortho and Spine [facility] [id number] [facility] [facility] 2018-01-12 14:15:00 2018-01-12 14:15:00 Appointment; ELOY MORALES M .D. BLUM, HENRY, M.D. [facility] Ortho and Spine Critical access hospitaler [phone] [phone] [facility] 2017-09-29 15:00:00 2017-09-29 15:00:00 Appointment; SHERITA CUMMINGS M.D. PARSLEY, BRIAN, M.D. [facility] UTP [id number] [facility] 2017-03-24 09:30:00 2017-03-24 09:30:00 Appointment; SHERITA CUMMINGS M.D. PARSLEY, BRIAN, M.D. [facility] UTP [phone] [facility] Results Test Description Test Time Test Comments Results Result Comments Source CHEST 2 VIEWS 2020-04-29 13:50:00 [place] [address] Patient Name: KATHERINE RICE MR #: [id number] : 1955 Age/Sex: 64/F Req #: [id number] Adm Physician: Ordered by: LAKISHA SIDDIQUI MD Report #: [id number] Location: OR Room/Bed: Procedure: [id number] DX/CHEST 2 VIEWS Exam Date: 04/29/20 Exam Time: 1330 REPORT STATUS: Signed EXAMINATION: CHEST 2 VIEWS INDICATION: Pre-operative COMPARISON: None FINDINGS: LINES/TUBES:None LUNGS:The lungs are well-inflated. No focal consolidation or pulmonary edema. PLEURA:No pleural effusion or pneumothorax. MEDIASTINUM:The cardiomediastinal silhouette appears normal in size and shape. BONES/SOFT TISSUES:No acute osseous injury. ABDOMEN:No free air under the diaphragm. Status post cholecystectomy. IMPRESSION: No focal pneumonia or pulmonary edema. Signed by: Jose Carbone MD on 04/29/2020 1:50 PM Dictated By: JOSE CARBONE MD 135 Transcribed By: RICO on 04/29/201349 COPY TO: LAKISHA SIDDIQUI MD XR Chest 2 Vw 2019-09-16 16:41:24 Hm Interface , Radiology Results 09/16/2019 4:44 PM CSTEXAMINATION: XR CHEST 2 VWCLINICAL HISTORY: 64 years Female J40 Bronchitis not specified as acute or chronic, Cough new onsetCOMP ARISON: June 15IMPRESSION:The cardiomediastinal silhouette is not enlarged The lungs are clear Age related changes in the osseous structures.. [id number] [facility] Influenza A/B 2019-09-16 16:04:00 Test Item Rapid Influenza A Ag (test code = 96082-2) negative Rapid Influenza B Ag (test code = 67882-0) negative Lab Interpretation (test code = 37440-7) Normal [facility] [id number] 16:09:00* Test Item Value Reference Range Interpretation Comments Glucose (test code = 2345-7) 106 mg/dL 65-99 H BUN (test code = 3094-0) 18 mg/dL 8-27 Creatinine (test code = 2160-0) 1.27 mg/dL 0.57-1 H EGFR Non-Afr. Tajik (test code = 2775) 45 mL/min/1.73 >59 L EGFR (test code = 2774) 52 mL/min/1.73 >59 L BUN/creatinine ratio (test code = 3097-3) 14 12-28 Sodium (test code = 2951-2) 130 mmol/L 134-144 L Potassium (test code = 2823-3) 5.4 mmol/L 3.5-5.2 H Chloride (test code = 2075-0) 91 mmol/L 96-106 L CO2 (test code = 8-9) 22 mmol/L 20-29 Calcium (test code = 18226-4) 9.8 mg/dL 8.7-10.3 Protein (test code = 2885-2) 6.6 g/dL 6-8.5 Albumin, S (test code = 1751-7) 4.2 g/dL 3.6-4.8 Globulin, total (test code = 91556-5) 2.4 g/dL 1.5-4.5 Albumin/globulin ratio (test code = 1759-0) 1.8 1.2-2.2 Total bilirubin (test code = 1975-2) 0.3 mg/dL 0-1.2 Alkaline phosphatase (test code = 6768-6) 109 39- 117 IU/L AST (test code = 1920-8) 24 0- 40 IU/L ALT (test code = 1742-6) 17 0- 32 IU/L RUDOLPH (test code = RUDOLPH) Performed at: [address] [place] [address] [id number] Director: Sergio Brannon MD, Phone: [phone] Lab Interpretation (test code = 37289-9) Abnormal [facility] [id number] 16:09:00* Test Item Value Reference Range Interpretation Comments Cholesterol (test code = 2093-3) 245 mg/dL 100-199 H Triglycerides (test code = 2571-8) 119 mg/dL 0-149 HDL cholesterol (test code = 2085-9) 72 mg/dL >39 VLDL cholesterol shayan (test code = 91086-3) 24 mg/dL 5-40 LDL cholesterol calculated (test code = 82379-0) 149 mg/dL 0-99 H Non-HDL cholesterol (test code = 66109-8) 173 mg/dL 0-129 H RUDOLPH (test code = RUDOLPH) Performed at: [address] [place] [address] [id number] Director: Sergio Brannon MD, Phone: [phone] Lab Interpretation (test code = 97410-1) Abnormal [facility] stimulating [id number] 16:09:00* Test Item Value Reference Range Interpretation Comments TSH (test code = 82607-3) 0.607 0.450- 4.500 uIU/mL RUDOLPH (test code = RUDOLPH) Performed at: [address] [place] [address] [id number] Director: Sergio Brannon MD, Phone: [phone] [facility] with platelet and [id number] 16:09:00* Test Item Value Reference Range Interpretation Comments WBC (test code = 6690-2) 10.5 3.4- 10.8 x10E3/uL RBC (test code = 789-8) 3.87 3.77- 5.28 x10E6/uL HGB (test code = 718-7) 12.3 g/dL 11.1-15.9 HCT (test code = 4544-3) 36.3 % 34-46.6 MCV (test code = 787-2) 94 fL 79-97 MCH (test code = 785-6) 31.8 pg 26.6-33 MCHC (test code = 786-4) 33.9 g/dL 31.5-35.7 RDW (test code = 788-0) 14.6 % 12.3-15.4 Platelet count (test code = 777-3) 420 150- 450 x10E3/uL Neutrophils (test code = 770-8) 67 % Not Estab. Lymphocytes (test code = 736-9) 25 % Not Estab. Monocytes (test code = 5905-5) 6 % Not Estab. Eosinophils (test code = 713-8) 1 % Not Estab. Basophils (test code = 706-2) 0 % Not Estab. Neutrophils, absolute (test code = 751-8) 7.1 1.4- 7.0 x10 E3/uL H Lymphocytes, absolute (test code = 731-0) 2.6 0.7- 3.1 x10 E3/uL Monocytes, absolute (test code = 742-7) 0.7 0.1- 0.9 x10E3 /uL Eosinophils, absolute (test code = 711-2) 0.1 0.0- 0.4 x10 E3/uL Basophils, absolute (test code = 704-7) 0.0 0.0- 0.2 x10E3 /uL Immature granulocytes (test code = 23973-5) 1 % Not Estab. Immature grans (abs) (test code = 24755-7) 0.1 0.0- 0.1 x1 0E3/uL RUDOLPH (test code = RUDOLPH) Performed at: [facility] [id number] Director: Sergio Brannon MD, Phone: [phone] Comment: A duplicate report has been generated due to demographic updates. Lab Interpretation (test code = 41421-3) Abnormal [facility] CKD [id number] 16:09:00* Test Item Value Reference Range Interpretation Comments Interpretation (test code = 6257311) Note Supplemental report is available. RUDOLPH (test code = RUDOLPH) Performed at: [facility] [employer] [address], [place], [place] [id number] Director: Lukasz Snyder MD, Phone: [phone] [facility] 12 [id number] 11:05:04* Test Item Value Reference Range Interpretation Comments Ventricular rate (test code = 253) 90 Atrial rate (test code = 255) 90 NJ interval (test code = 266) 140 QRSD interval (test code = 260) 78 QT interval (test code = 264) 338 QTC interval (test code = 265) 413 P axis 1 (test code = 267) 40 QRS axis 1 (test code = 268) 62 T wave axis (test code = 270) 64 EKG impression (test code = 273) Normal sinus rhythm-N ormal ECG-In automated comparison with ECG of 22-MAY-2019 10:50,-No significant change was found- [facility] Spine lumbar wo contrast [id number] 14:55:00Study: Spine lumbar wo contrast MRIClinical Indication: - M54.5, Low back pa inComparison: NoneTECHNIQUE: Multiplanar, multisequence magnetic resonance imagi ng of the lumbarspine was performed without the administration of intravenous g adoliniumcontrast.FINDINGS:5 nonrib-bearing lumbar vertebra are present. No acut e compression fracture orsubluxation is seen. Postoperative changes of posterior instrumentation forfusion with transpedicular fixation screws and Kim ro ds at L4-L5 areseen. Changes of discectomy and interbody spacer placement at L4- L5 are noted.No pars interarticularis defects are seen. Disc desiccation withmod erate-severe disc height loss at L1-L2 is seen. Disc desiccation with severedisc height loss at L5-S1 is also noted. The remaining discs are normal insignal int ensity and height. The conus terminates at L1-L2. Paravertebral softtissues are unremarkable.Findings by level:L1-L2: Moderate-sized annular disc bulge is seen. Mild facet arthrosis andligamentum flavum hypertrophy is noted. There is no spi nal canal stenosis orneural foraminal narrowing.L2-L3: The disc is normal. Mild facet arthrosis and ligamentum flavumhypertrophy is seen. There is no spinal can al stenosis or neural foraminalnarrowing.L3-L4: Small annular disc bulge is pres ent. Moderate facet arthrosis andligamentum flavum hypertrophy is seen. There is mild spinal canal stenosis withmild bilateral neural foraminal narrowing.L4-L5: Postoperative changes of fusion across the disc space are seen. Changesof dorsal decompressive laminectomy are noted. No spinal canal stenosis orneural foraminal narrowing is noted.L5-S1: Moderate-sized circumferential disc osteophyte complex is seen. Moderatefacet arthrosis is noted. There is no spinal canal stenosis. Mild left neuralforaminal narrowing is present.There is no nerve root clumping to suggest arachnoiditis.IMPRESSION:1. Postoperative changes of fusion and lami nectomy at L4-L5.2. Degenerative changes of the remaining lumbar spine with mild spinal canalstenosis and mild bilateral neural foraminal narrowing at L3-L4.SL: [id number]--Ofgj by: Juan M Hernandezictated Date/time: 02/14/19 16: 07Electronically Signed by: Juan M Hernandez MD 6:11FINAL REPORTUnHe[facility]2018-12-31 09:35:00 RUN DATE: 09/03/18 [facility] - Lab PAGE 1 RUN TIME: 934 Specimen Inqui ry RUN USER: INTERFACE PATIENT: KATHERINE RICE ACCT #: [id number] LOC: JasonAkshatANTONIO U #: [id number] AGE/SX: 63/F ROOM: RE08/31/18REG DR: Priscilla Pina DPM : 55 BED: DIS: STATUS: [facility] TLOC: SPEC #: [id number] RECD: 08/31/18 STATUS: GAEL REMary #: [id number] KIM: 08/31/[address]: Priscilla Pina DPM ENTERED: 08/31/18 SP TYPE: HARDWARE OTHR DR: ORDERED: SURG PATH LVL 1 CODES: IC3627 - FOOT, NOS [id number] M50324 - TOE, NOS SIGNALER PROCEDURES: SURG PATH LVL 1 (08/31/18) TISSUES: A. FOOT, NOS - LT FOOT 2ND TOE HARDWARE CLINICAL HISTORY DEFORMED 2ND TOE LEFT FOOT W/ RETAINED HARDWARE CPT CODES CPT CODE (S): 52660 , , , , , , FINAL DIAGNOSIS Surgical hardware, left second toe, removal: HAAS RGICAL HARDWARE (GROSS EXAMINATION) GROSS DESCRIPTION Hardware from se cond left toe. Received are three metallic fragments (less than 1 mm each), s ubmitted for gross identification only. /tc/marjorie Signed SIGNATURE ON FILE Mukesh Cha Jerry 09/03/18 0935 END OF REPORT [id number] 10:57:00 RUN DATE: 06/20/18 [facility] PAGE 1 RUN TIME: 1057 Specimen Inqui ry RUN USER: INTERFACE PATIENT: KATHERINE RICE CHIDI ACCT #: [id number] LOC: SYD U #: [id number] AGE/SX: 62/F ROOM: RE06/19/18REG DR: Priscilla Pina DPM : 55 BED: DIS: STATUS: DEP SDC TLOC: SPEC #: [id number] RECD: 06/19/18 STATUS: GAEL NICOLE #: [id number] KIM: 06/19/[address]: Priscilla Pina DPM ENTERED: 06/19/18 SP TYPE: BONE OTHR DR: ORDERED: DECAL, SURG PATH LVL 4 CODES: [id number] - TOE, NOS [id number] - TOE, NOS EXCISION, NOS PROCEDURES: DECAL (06/19/18) SURG PATH LVL 4 (06/19/18) TISSUES: A. TOE, NOS - 2ND/3RD TOE BONE CPT CODES CPT CODE(S): 28683 , 17386 , , , , , FINAL DIAGNOSIS Bone, second and third pedal digits, "contraction," excision: NO SIGNIFICANT PATHOLOGIC CHANGES IDEN TIFIED GROSS DESCRIPTION Second and third toe bone. Received are two pieces of bone (0.9 x 0.5 x 0.5 cm and 1 x 0.5 x 0.3 cm), sectioned longitudin ally and entirely submitted for decalcification as A1. /tc/marjorie MICROSCOPIC DESCRIPTION Second and third toe bone. Benign bone and periarticular tissue without significant pathologic alteration. No significant acute inflammation. No atypia. No malignancy. /marjorie Signed SIGNATURE ON FILE Ang Vallejo 06/20/18 1057 END OF REPORT MR Knee wo contrast [id number] 14:32:00EXAMINATION: MRI of the right knee without contrastHISTORY: Right knee pain; right knee arthritis with history of right kneearthroplastyCOMPARISON: Fluoroscopic images dated 07/04/2017 are reviewed.TECHNIQUE: Multiplanar, multisequence magnetic resonance imaging of the rightknee is performed with an extremity coil without contrast utilizing metalartifact reduction technique (WARP protocol).FINDINGS:There is a 2 component right total knee arthroplasty in place with longstemfemoral and tibial components. Cerclage wire surrounds the tibial stem. Ofnote, the proximal aspect of the femoral stem and distal aspect of the tibialstem are incompletely imaged. Unfortunately, there is substantial metallicblooming susceptibility artifact despite utilization of metal artifactreduction technique, secondary to the size of the patient's metallicarthroplasty with longstem femoral and tibial components rather than thetypical smaller components of a simple right knee arthroplasty. This slightlylimits evaluation of the adjacent structures. There is no periprostheticosteolysis identified and there is no MR imaging evidence of loosening. Thereis no acute periprosthetic fracture identified.The patella philippe ears very small and dysplastic, likely secondary to partialosseous resorption an d osseous remodeling (series 13, images 17 through 22 andseries 12, images 17 th rough 21). The extensor mechanism is diffusely irregularand heterogeneous and di fficult to evaluate secondary to the adjacent artifact,but there is suspected se hailee distal quadriceps and severe patellartendinopathy and there are possible ar eas of tearing of the distal quadricepstendon and proximal patellar tendon at th eir attachments to the patella.There is a trace knee effusion and there is a juan a y small Sesay's cyst.Otherwise, there is no soft tissue fluid collection. There are no suspiciousbone marrow replacing lesions.IMPRESSION:1. Right total knee ar throplasty in place with longstem femoral and tibialcomponents and cerclage wire surrounding the tibial stem. Unfortunately, thereis substantial metallic bloomi ng susceptibility artifact despite utilization ofmetal artifact reduction techni que, secondary to the size of the patient'smetallic arthroplasty with longstem f emoral and tibial components rather thanthe typical smaller components of a simp le right knee arthroplasty.2. No evidence of periprosthetic osteolysis, or acute periprosthetic fracture,or MR imaging evidence of loosening of the right knee a rthroplasty.3. Very small and dysplastic patella, likely secondary to partial os seousresorption and osseous remodeling. The extensor mechanism of the right knee isdiffusely irregular and heterogeneous and difficult to evaluate secondary tot he adjacent artifact, but there is suspected severe distal quadriceps andsevere patellar tendinopathy and there are possible areas of tearing of thedistal quadr iceps tendon and proximal patellar tendon at their attachments tothe patella.4. Trace right knee effusion and very small right knee Sesay's cyst. Otherwise,no s oft tissue fluid collection.--Read by: Juan José Tang MDDictated Date/jared e: 01/19/18 16:30Electronically Signed by: Juan José Tang MD 01/20/1816:50FINAL REPORTUnSalt [facility]] CBC (INCLUDES DIFF/PLT)2018-01-13 10:00:01* Test Item Value Reference Range Interpretation Comments WBC (test code = 6690-2) 5.2 {K/CMM} 3.7-10.4 RBC (test code = 789-8) 4.23 {M/CMM} 4.20-5.40 Hgb (test code = 718-7) 12.8 g/dl 12.0-16.0 Hct (test code = 49049-6) 38.6 % 36.0-48.0 MCV (test code = 787-2) 91.2 fL 80.0-98.0 MCH (test code = 785-6) 30.4 pg 27.0-31.0 MCHC (test code = 786-4) 33.3 g/dl 32.0-36.0 RDW (test code = 788-0) 13.4 % 11.5-14.5 Platelet (test code = 81031-6) 224 {K/CMM} 133-450 Mean Platelet Volume (test code = 31686-2) 8.4 fL 7.4-10.4 [facility]] [id number] 10:00:01* Test Item Value Reference Range Interpretation Comments Segmented Neutrophils (test code = 11208-9) 68.8 % 45.0-75.0 Monocytes (test code = 15886-4) 5.9 % 2.0-12.0 Lymphocytes (test code = 55515-2) 21.5 % 20.0-40.0 Eosinophils (test code = 96417-7) 3.4 % 0.0-4.0 Basophils (test code = 706-2) 0.4 % 0.0-1.0 Segs-Bands # (test code = 33960-9) 3.6 {K/CMM} 1.5-8.1 Lymphocytes # (test code = 53080-6) 1.1 {K/CMM} 1.0-5.5 Monocytes # (test code = 65751-4) 0.3 {K/CMM} 0.0-0.8 Eosinophils # (test code = 56242-2) 0.2 {K/CMM} 0.0-0.5 [facility]] SED RATE BY MODIFIED [id number] 10:00:01* Test Item Value Reference Range Interpretation Comments Sedimentation Rate (test code = 70600-9) 13 {mm/hr} 0-20 [facility]] D-DIMER, [id number] 10:00:01* Test Item Value Reference Range Interpretation Comments D-Dimer (test code = 58567-2) 0.95 {ug/ml FEU} In DIC, quantitative D-Dimer is generally greater than0.66 ug/mL FEU. Values of quantitative D-Dimer less than0.40 ug/mL FEU have been reported to be associated with a lowprobability of deep vein thrombosis/pulmonary embolism.This test alone should not be used to rule out DVT/PE. [facility]] C-REACTIVE [id number] 10:00:01* Test Item Value Reference Range Interpretation Comments CRP (test code = CRP) 9.7 mg/L <=2.9 [facility][U] XRAY KNEE 3 VWS RIGHT [id number] 15:46:00 Images acquired, not reported on this accession number.[facility][U] XRAY FOOT 2 VWS RIGHT [id number] 15:34:00Images acquired, not reported on this accession number.[facility]
[2020-05-04 13:57] VITALS: BP 144/60
[2020-05-04 14:05] VITALS: BP 144/60
[2020-05-04 14:06] VITALS: BP 144/60
[2020-05-04] MEDS: SODIUM CHLORIDE 0.9% 1000ML 1,000 ML IV SCH ×2 (15:09→17:15)
[2020-05-04 15:30] VITALS: BP 125/64
--- NOTE | 2020-05-04 16:07 | Operative Report ---
DATE OF PROCEDURE: 05/04/2020 SURGEON: Nadeem Jade MD PREOPERATIVE DIAGNOSES: 1. Morbid obesity, BMI 43. 2. Hypertension. 3. Obstructive sleep apnea. 4. History of pulmonary embolism. 5. Chronic gastroesophageal reflux disease. POSTOPERATIVE DIAGNOSES: 1. Morbid obesity, BMI 43. 2. Hypertension. 3. Obstructive sleep apnea. 4. History of pulmonary embolism. 5. Chronic gastroesophageal reflux disease. PREOPERATIVE INDICATION: Treat disease, prevent complications related to comorbid conditions of obesity. PROCEDURE: Laparoscopic vertical sleeve gastrectomy. ANESTHESIA: General. CHEMICAL ENGINEERING TEACHER: Cristino Healy, assistant professor of drama (needed due to complexity of case). FLUIDS: 1 L crystalloid. ESTIMATED BLOOD LOSS: 30 mL. DRAINS: None. COMPLICATIONS: None. SPECIMENS: Partial stomach. GRAFTS: None. FINDINGS: 1. Gastric polyp on the greater curvature of the stomach. 2. Otherwise normal upper GI anatomy with a questionable hiatal hernia. 3. Negative leak test. PROCEDURE IN DETAIL: The patient was brought to the operating room and was intubated under general endotracheal anesthesia. She was positioned supine with both arms abducted and all pressure points appropriately padded. She was sterilely prepped and draped in the usual fashion. A preprocedure pause was performed identifying the patient, use of perioperative antibiotics, intended procedure, and staff surgeon. Access was gained via a 5 mm left subcostal incision using a Veress needle. The abdomen was insufflated. Four additional trocars placed in the standard position. Liver retractor was used to expose the stomach. The greater curvature of stomach was mobilized from about 3 cm proximal to the pyloric valve to the left dylon of the diaphragm using the [place] LigaSure device. Of note, there was an external gastric polyp in a pedunculated manner off the greater curvature of stomach, which was noted. Once the stomach was completely mobilized, we then had anesthesia inserted a 32-[place] ViSiGi tube into the lesser curvature of the stomach. The greater curvature of stomach was resected with multiple firings of a 60 mm Medtronic stapling device, purple loads used with Jamil ANGULO. Once that was complete, we submerged the sleeve under saline and performed a leak test. No leaks were identified. The specimen along with the gastric polyp was removed through the right periumbilical port site. The port site was closed with 0 Vicryl suture using the Mak Beckett technique in an interrupted fashion. We then verified hemostasis, removed the liver retractor and desufflated the abdomen. Trocars were removed. Incision sites were closed with 4-0 Monocryl suture in a subcuticular fashion. Dermabond dressings were applied. 0.25% bupivacaine was used both at the preperitoneal and incision sites. The patient tolerated the procedure well. Type of wound was type 2, clean, contaminated. All surgical sponge and instrument counts were correct. MD AYESHA Sky/SCOTTL /[id number]
[2020-05-04] MEDS: MORPHINE SULFATE 2 MG/ML SYR 1ML IV PRN ×2 (16:32→19:32)
--- NOTE | 2020-05-04 17:28 | History and Physical ---
CHIEF COMPLAINT: Weight loss surgery. HISTORY OF PRESENT ILLNESS: This is a 64-year-old white woman, who was admitted to [facility] with diagnosis of extreme obesity, BMI of 40, complicated underlying hypertension. Today, the patient underwent successful laparoscopic sleeve gastrectomy that was performed by Dr. Nadeem Jade. The patient voices no complaints. The patient had blood work done on April 29, 2020, and was found to have a hemoglobin 10.9 g/dL. The patient's white blood cell count was 9200 with 75% segmented neutrophils. Also on April 29, 2020, the patient was found to have BUN and creatinine of 43 and 1.42 respectively. The patient's potassium on that date was 5.3. The patient had underwent a COVID-19 test also on April 29, 2020 and the results were negative. REVIEW OF SYSTEMS: GENERAL: Weight is stable. No fever or chills. HEENT: No headaches. No visual changes. CARDIOVASCULAR: No chest pain or short cough. GI: No nausea, vomiting, diarrhea, or constipation. : Rae catheter has been removed. NEUROMUSCULAR: No limb weakness noticed. ALLERGIES: NO KNOWN DRUG ALLERGIES. PAST MEDICAL HISTORY: 1. Extreme obesity, BMI of 41. 2. Hypertension. 3. Peripheral neuropathy. 4. Depression. 5. Stage 3 chronic kidney disease. PAST SURGICAL HISTORY: 1. Laparoscopic sleeve gastrectomy today. 2. Bilateral total knee replacement. 3. Right knee surgery seven times prior to the knee replacement. 4. Left knee surgery three times prior to knee replacement. 5. Bilateral right thumb surgery because of debilitating arthritis. 6. Appendectomy. 7. Cholecystectomy. 8. Tonsillectomy. 9. Hysterectomy. FAMILY HISTORY: Brother has coronary artery disease. SOCIAL HISTORY: This woman is , lives with . She is currently retired. No history of tobacco use. She drinks alcohol rarely. HOME MEDICATIONS: 1. Bupropion SR 150 mg daily. 2. Furosemide 40 mg daily. 3. Hypothyroidism. 4. Gabapentin 900 mg at bedtime. 5. Lisinopril 30 mg at bedtime. 6. Venlafaxine 150 mg daily. 7. Geodon 60 mg at bedtime. PHYSICAL EXAMINATION: GENERAL: She is awake, alert, and fluent. She is very pleasant and cooperative on exam. VITAL SIGNS: Blood pressure is 142/74, pulse 98, respiratory rate 18, oxygen saturation 98% on room air, temperature 97.9, height 5 feet 6 inches, weight is 258 pounds, BMI 41. INTEGUMENT: Skin is warm and dry. No pallor, jaundice, or diaphoresis. HEENT: Anicteric sclerae. Moist mucous membranes. NECK: Supple. CARDIOVASCULAR: Distant heart sounds. Tachycardic rate with regular rhythm. The patient has extrasystolic beats. LUNGS: No rales, rhonchi or wheezes. ABDOMEN: Obese, benign. The laparoscopic incisions are clean, dry, and intact. No bowel sounds are auscultated. EXTREMITIES: No edema or deformity. NEUROLOGIC: Intact. DIAGNOSES: 1. Extreme obesity, BMI 40 complicated underlying hypertension. 2. Status post laparoscopic sleeve gastrectomy (today). 3. Hypertensive heart disease. 4. Stage 3 chronic kidney disease. 5. Depression. PLAN: 1. Encourage incentive spirometer usage to prevent atelectasis. 2. Gentle intravenous fluids. 3. Follow electrolytes and renal function. 4. We will start enoxaparin subcutaneously to prevent deep venous thrombosis and pulmonary embolism. 5. Mobilize with walker. 6. Resume home medications. 7. Pain control. 8. Telemetry and 12 lead EKG because of frequent extra systolic beats I spent 45 minutes in the care of this patient. MD LEE Blankenship/ZULEMA /[id number] MTDKimberley
[2020-05-04] MEDS ORDERED: LIDOCAINE HCL 2% JELLY 5 ML TUBE ONE (17:50)
[2020-05-04] MEDS ORDERED: KETOROLAC TROMETHAMINE 30 MG/ML VIAL ONE (17:50)
[2020-05-04] MEDS ORDERED: DEXAMETHASONE SOD PHOS INJ 4 MG/ML VIAL ONE (17:50)
[2020-05-04] MEDS ORDERED: EPHEDRINE SULFATE INJ 50 MG/ML VIAL ONE (17:50)
[2020-05-04] MEDS ORDERED: LIDOCAINE HCL 2% LOCAL INJ 5 ML SDV VIAL INJ ONE (17:50)
[2020-05-04] MEDS ORDERED: VASOPRESSIN INJ 20 UNIT/ML VIAL ONE (17:50)
[2020-05-04] MEDS ORDERED: PHENYLEPHRINE HCL 1% 10 MG/ML VIAL ONE (17:50)
[2020-05-04] MEDS ORDERED: SEVOFLURANE INHAL SOLN 250 ML PEN BTL ONE (17:50)
[2020-05-04] MEDS ORDERED: NEOSTIGMINE 1 MG/ML 10ML VIAL ONE (17:50)
[2020-05-04] MEDS ORDERED: PROPOFOL IV EMULSION 10 MG/ML 20 ML VIAL ONE (17:50)
[2020-05-04] MEDS ORDERED: GLYCOPYRROLATE INJ 0.2 MG/ML VIAL ONE (17:50)
[2020-05-04] MEDS ORDERED: ROCURONIUM BROMIDE 10 MG/ML 5ML VIAL IV ONE (17:50)
[2020-05-04] MEDS ORDERED: ONDANSETRON HCL INJ 2MG/ML 2ML 2 MG/ML VIAL ONE (17:50)
[2020-05-04 20:00] VITALS: BP 136/47
[2020-05-04] MEDS ORDERED: ZIPRASIDONE 20 MG CAP PO SCH (21:00)
[2020-05-04] MEDS: ENOXAPARIN SOD INJ 40 MG/0.4 ML SYR SC SCH (21:39)
[2020-05-04] MEDS ORDERED: KETOROLAC TROMETHAMINE 30 MG/ML VIAL IV ONE (22:10)
[2020-05-05] VITALS: BP 95/49
[2020-05-05] MEDS: SODIUM CHLORIDE 0.9% 1000ML 1,000 ML IV SCH ×2 (01:47→09:15)
[2020-05-05] MEDS: MORPHINE SULFATE 2 MG/ML SYR 1ML IV PRN ×2 (02:10→10:58)
[2020-05-05 04:00] VITALS: BP 107/54
[2020-05-05 05:42] LABS: BASOPHILS % 0.1 % (0.0-1.0); HEMATOCRIT 28.5 % (34.2-44.1); HEMOGLOBIN 9.4 g/dL (12.0-16.0); LYMPHOCYTES % 12.3 % (18.0-39.1); MEAN CORPUSCULAR HEMOGLOBIN 29.9 pg (28-32); MEAN CORPUSCULAR VOLUME 90.8 fL (81-99); MONOCYTES # (AUTO) 0.5 (0.2-0.8); MONOCYTES % 6.3 % (4.4-11.3); NEUTROPHILS # (AUTO) 6.3 (2.1-6.9); NEUTROPHILS % 80.8 % (38.7-80.0); PLATELET COUNT 209 x10e3/uL (140-360); RED BLOOD COUNT 3.14 x10e6/uL (3.6-5.1); RED CELL DISTRIBUTION WIDTH 13.1 % (11.7-14.4)
[2020-05-05 06:39] LABS: ANION GAP 15.7 mmol/L (8-16); CALCIUM 8.5 mg/dL (8.4-10.2); CREATININE, SERUM 1.42 mg/dL (0.57-1.11); MAGNESIUM 2.4 MG/DL (1.3-2.1); PHOSPHORUS 3.4 MG/DL (2.3-4.7); POTASSIUM 4.7 mmol/L (3.5-5.1)
[2020-05-05] MEDS ORDERED: HYDROCODONE/APAP 7.5MG-325MG 1 EA TAB PO PRN (07:00)
[2020-05-05 07:43] LABS: ALBUMIN/GLOBULIN RATIO 1.7 (0.8-2.0)
[2020-05-05 08:00] VITALS: BP 119/63
[2020-05-05] MEDS: ENOXAPARIN SOD INJ 40 MG/0.4 ML SYR SC SCH (09:17)
[2020-05-05 09:47] VITALS: BP 119/63
--- NOTE | 2020-05-05 10:31 | Discharge Summary ---
ADMIT DIAGNOSES: 1. Extreme obesity, BMI 41, complicating underlying hypertension. 2. Hypertensive heart disease. 3. Obstructive sleep apnea. 4. Gastroesophageal reflux disease. 5. Stage 3 chronic kidney disease. DISCHARGE DIAGNOSES: 1. Laparoscopic vertical sleeve gastrectomy. 2. Extreme obesity, BMI 41, complicating underlying hypertension and obstructive sleep apnea. 3. Hypertensive heart disease. 4. Obstructive sleep apnea. 5. Remote history of pulmonary embolism. 6. Gastroesophageal reflux disease. 7. Stage 3 chronic kidney disease. HOSPITAL COURSE: This is a 64-year-old white woman, who was initially admitted to [facility] with diagnosis of extreme obesity, BMI 41, complicating underlying hypertension and obstructive sleep apnea. During this hospitalization, the patient underwent successful laparoscopic vertical sleeve gastrectomy, which she tolerated quite well. The patient is tolerating a clear liquid diet today. Today's, white blood cell count of 7800 with 80% segmented neutrophils. The patient's hemoglobin was 9.4 g/dL yesterday. On April 29, 2020, hemoglobin was 10.9 g/dL. The patient's BUN and creatinine today 36 and 1.42, respectively. On April 29, 2020, BUN and creatinine was 43 and 1.42, respectively. Potassium today is 4.7. Prior to being discharged, the patient was tolerating a full liquid diet. CONDITION ON DISCHARGE: Stable. DISCHARGE MEDICATIONS: 1. Tylenol No.3 one pill every 4 hours p.r.n. pain, 30 prescribed, no refills. 2. Enoxaparin 40 mg subcutaneous twice a day, 14 days, no refills. 3. Ondansetron 4 mg by mouth every 6 hours p.r.n. nausea and vomiting, 20 prescribed, no refills. 4. Bupropion SR 150 mg daily. 5. Furosemide 40 mg daily. 6. Gabapentin 100 mg at bedtime. 7. Lisinopril 30 mg at bedtime. 8. Venlafaxine 150 mg daily. 9. Geodon 60 mg at bedtime. FOLLOWUP INSTRUCTIONS: The patient is instructed to follow with Dr. Nadeem Jade within 7-10 days and with her primary care physician within 2 weeks. The patient is instructed to self administer the enoxaparin injections twice a day for 2 weeks as ordered by the bariatric surgeon since she does have a remote history of pulmonary embolism. MD LEE Blankenship/ZULEMA /[id number] cc: Nadeem Jade MD MTDD
[2020-05-05 12:00] VITALS: BP 129/61
== END 2020-05-05 12:46 | disposition home or self-care (01) | DRG 621 ==
LOC: OR 07:13 → PACU V 10:32 → MED/SURG 13:26
PROVIDERS: ADMIT Internal Medicine; ATTEND Internal Medicine
PROC: 0DB64Z3 Excision of Stomach, Percutaneous Endoscopic Approach, Vertical (ICD-10-PCS; principal; 2020-05-04 09:14)
DX: E66.01 Morbid (severe) obesity due to excess calories (principal); G47.30 Sleep apnea, unspecified; Z68.41 Body mass index [BMI] 40.0-44.9, adult; K21.9 Gastro-esophageal reflux disease without esophagitis; I12.9 Hypertensive chronic kidney disease with stage 1 through stage 4 chronic kidney disease, or unspecified chronic kidney disease; N18.3 Chronic kidney disease, stage 3 (moderate); G47.33 Obstructive sleep apnea (adult) (pediatric); Z11.59 Encounter for screening for other viral diseases; Z86.711 Personal history of pulmonary embolism; Z79.01 Long term (current) use of anticoagulants
CPT/HCPCS: 36415; 71046; 80048; 80053; 83735; 84100; 85025; 88305; 88307; 88312; 93005; J0690; J1100; J1650; J1885; J2001; J2270; J2370; J2405; J2550; J2710; J2765; J7030; U0002